=== PATIENT | female | born 1960 ===

== ENCOUNTER 2016-12-22 09:45 | Emergency (ER) | payer MEDICAID, OTHER ==
[2016-12-22] MEDS ORDERED: Morphine 4 MG/ML VIAL ONE (10:27)
[2016-12-22] MEDS ORDERED: Morphine 4 MG/ML VIAL IV STA (10:28)
--- NOTE | 2016-12-22 10:31 | C.PDOC ---
History Of Present Illness 56 y/o female presents to the ED for evaluation s/p fall. She reports that she was on her way to work when she slipped and fell landing on her right side. Patient now complaints of pain to the right elbow and right ribs. She denies any head injury, loss of consciousness, numbness/weakness, shortness of breath, or other complaints. Time Seen by Provider: 12/22/16 10:09 Chief Complaint (Nursing): Upper Extremity Problem/Injury History Per: Patient History/Exam Limitations: no limitations Onset/Duration Of Symptoms: Mins, Sudden Onset, Persistent Recent travel outside of the [place]: No Past Medical History Reviewed: Historical Data, Nursing Documentation, Vital Signs Vital Signs: Last Vital Signs Temp 98.2 F 12/22/16 14:54 Pulse 77 12/22/16 14:54 Resp 16 12/22/16 14:54 BP 136/81 12/22/16 14:54 Pulse Ox 98 12/22/16 18:21 - Medical History PMH: No Chronic Diseases Surgical History: No Surg Hx Family History: States: Unknown Family Hx - Social History Hx Tobacco Use: No Hx Alcohol Use: No Hx Substance Use: No - Immunization History Hx Influenza Vaccination: No Review Of Systems Except As Marked, All Systems Reviewed And Found Negative. Respiratory: Negative for: Shortness of Breath Musculoskeletal: Positive for: Arm Pain (right elbow), Other (right rib pain) Neurological: Negative for: Weakness, Numbness, Other (LOC) Physical Exam - Physical Exam Appears: Non-toxic, No Acute Distress Skin: Normal Color, Warm, Dry Head: Atraumatic, Normacephalic Eye(s): bilateral: Normal Inspection, PERRL, EOMI Neck: Normal ROM, No Midline Cervical Tenderness, No Paracervical Tenderness, Supple Chest: Symmetrical Cardiovascular: Rhythm Regular Respiratory: Normal Breath Sounds, No Rales, No Rhonchi, No Wheezing Gastrointestinal/Abdominal: Normal Exam, Soft, No Tenderness Back: Other (tenderness to posterior lateral right ribs) Extremity: Tenderness (right elbow), Deformity (right elbow), Swelling (right elbow), Other (decreased ROM in the right elbow) Pulses: Left Radial: Normal, Right Radial: Normal Neurological/Psych: Oriented x3, Normal Speech, Normal Cognition, Normal Motor, Normal Sensation ED Course And Treatment O2 Sat by Pulse Oximetry: 98 (ra) Pulse Ox Interpretation: Normal - Other Rad X-Ray, Right Elbow X-Ray: Viewed By Me, Read By Radiologist Interpretation: Accession No. : [id number]. Patient Name / ID : TEVIN RAYGOZA / [id number]. Exam Date : 12/22/2016 10:15:18 ( Approved ). Study Comment : Sex / Age : F / 56Y. Creator : Montez Savage MD. Dictator : Montez Savage MD. Crm Marketing Manager : Communications Administrator : Montez Savage MD. Approver2 : Report Date : 2016 11:46:59. My Comment : . PROCEDURE: Right Wrist Radiographs. . HISTORY: fall. COMPARISON: None. FINDINGS: BONES: No apparent displaced fracture. JOINTS: Dislocation of the right elbow joint with anterior displacement of the femoral condyles. SOFT TISSUES: Surrounding soft tissue swelling. OTHER FINDINGS: None. IMPRESSION: Total disruption of the right elbow joint with anterior displacement of the femoral condyles. Although there is no radiographically apparent fracture, underlying subtle fracture cannot be entirely excluded. X-Ray, Right Ribs/Chest Interpretation: Accession No. : [id number]. Patient Name / ID : TEVIN RAYGOZA / [id number]. Exam Date : 12/22/2016 10:15:03 ( Approved ). Study Comment : Sex / Age : F / 56Y. Creator : Montez Savage MD. Dictator : Montez Savage MD. Crm Marketing Manager : Communications Administrator : Montez Savage MD. Approver2 : Report Date : 2016 12:08:22. My Comment : . PROCEDURE: Radiographs of the Chest and Right Ribs. HISTORY: fall. COMPARISON: None available. TECHNIQUE: Frontal radiograph of the chest and multiple oblique radiographs of the right ribs were obtained. FINDINGS: RIGHT RIBS: Mildly limited study. No obvious fracture noted. LUNGS: Clear. PLEURA: No pneumothorax or pleural fluid.Biapical pleural parenchymal thickening noted. CARDIOVASCULAR: Normal sized heart. No pulmonary vascular congestion. OTHER FINDINGS: The osseous structures demonstrate degenerative changes. IMPRESSION: No obvious fracture. Clear lungs. Progress Note: X-Ray of the right ribs and chest and x-ray of the right elbow were ordered. Patient was treated with Morphine IVP. Medical Decision Making Medical Decision Making: PROCEDURE: REDUCTION Performed by the emergency provider MD Perla and DOROTA Pink Time: 12:30 pm Consent: Informed consent, after discussion of the risks, benefits, and alternatives to the procedure, was obtained. Timeout: A timeout to verify the correct patient, procedure, and site was performed immediately prior to the procedure. Indication: Elbow dislocation Location: Right Sedation: Propofol 75 mg. See MAR for details. Pre-procedure neurovascular status: Distal neurovascular status intact. Technique: traction Post-procedure neurovascular status: Distal neurovascular status remains intact. Confirmation: Post-reduction films confirm reduction. See post-procedure X-Ray interpretation. Post-procedure: Patient tolerated the procedure well with no immediate complications. The reduction site was immobilized with a posterior long arm splint and arm sling. case was d/ w (Orthopedist outpatient receptionist) who instructed to d/c patient home with him to follow up. Disposition - Disposition Referrals: Rod Bird MD [Staff Provider] - Disposition: HOME/ ROUTINE Disposition Time: 14:04 Condition: IMPROVED Additional Instructions: Follow up with PMD and Orthopedist within 2-3 days. Return to ED if feel worse. Prescriptions: Ibuprofen [Motrin Tab] 600 mg PO Q8 #30 tab oxyCODONE/Acetaminophen [Percocet 5/325 mg Tab] 1 tab PO QID PRN #20 tab PRN Reason: Pain Instructions: Elbow Dislocation (ED) Forms: Work Excuse - Clinical Impression Clinical Impression: Elbow dislocation - PA / LIBRARY CONSULTANT / Resident Statement MD/DO has reviewed & agrees with the documentation as recorded. - Scribe Statement The provider has reviewed the documentation as recorded by the Scribe (Juli Russell) All medical record entries made by the Scribe were at my direction and personally dictated by me. I have reviewed the chart and agree that the record accurately reflects my personal performance of the history, physical exam, medical decision making, and the department course for this patient. I have also personally directed, reviewed, and agree with the discharge instructions and disposition.
[2016-12-22] MEDS ORDERED: Propofol 10 mg/ml Inj (20 ML) IV STA (11:35)
--- NOTE | 2016-12-22 11:48 | RAD ---
PROCEDURE: Right Wrist Radiographs. HISTORY: fall COMPARISON: None. FINDINGS: BONES: No apparent displaced fracture. JOINTS: Dislocation of the right elbow joint with anterior displacement of the femoral condyles. SOFT TISSUES: Surrounding soft tissue swelling. OTHER FINDINGS: None. IMPRESSION: Total disruption of the right elbow joint with anterior displacement of the femoral condyles. Although there is no radiographically apparent fracture, underlying subtle fracture cannot be entirely excluded.
[2016-12-22] MEDS ORDERED: Propofol 10 mg/ml Inj (20 ML) ONE (12:04)
--- NOTE | 2016-12-22 12:09 | RAD ---
PROCEDURE: Radiographs of the Chest and Right Ribs. HISTORY: fall COMPARISON: None available. TECHNIQUE: Frontal radiograph of the chest and multiple oblique radiographs of the right ribs were obtained. FINDINGS: RIGHT RIBS: Mildly limited study. No obvious fracture noted. LUNGS: Clear. PLEURA: No pneumothorax or pleural fluid.Biapical pleural parenchymal thickening noted. CARDIOVASCULAR: Normal sized heart. No pulmonary vascular congestion. OTHER FINDINGS: The osseous structures demonstrate degenerative changes. IMPRESSION: No obvious fracture. Clear lungs.
[2016-12-22] MEDS ORDERED: Propranolol 1 mg/mL Inj IVP ONE (12:56)
[2016-12-22 15:03] VITALS: BP 136/81; PULSE 77; RESP 16; TEMP 98.2
[2016-12-22 18:17] VITALS: O2SAT 98
--- NOTE | 2016-12-23 18:24 | RAD ---
PROCEDURE: Right Wrist Radiographs. HISTORY: post reduction COMPARISON: None. FINDINGS: BONES: No definitive radiographic evidence of acute fracture so far as can be seen. Consists consider followup MRI to assess for occult fracture and soft tissue - ligamentous/ tendinous injury JOINTS: . Previously noted dorsal and proximal dislocation of the radius and ulna with respect to the humerus has been reduced SOFT TISSUES: Diffuse infiltration changes/soft tissue swelling of the subcutaneous tissues and musculature likely representing some combination of edema and possibly some periarticular hemorrhage. . OTHER FINDINGS: None. IMPRESSION: Interval post reduction previously noted dislocation of the radius/ulna with respect to the humerus. Significant surrounding soft tissue swelling. No definitive evidence of acute displaced fracture. Consider followup MRI for further evaluation as detailed above.
== END 2016-12-22 15:05 | disposition home or self-care (01) ==
LOC: C.ER 09:45
DX: S53.114A Anterior dislocation of right ulnohumeral joint, initial encounter (principal); W00.0XXA Fall on same level due to ice and snow, initial encounter; Y92.414 Local residential or business street as the place of occurrence of the external cause
CPT/HCPCS: 24600; 71101; 73080; 99285; J2270

== ENCOUNTER 2017-07-22 19:45 | Emergency (ER) | payer MEDICAID ==
[2017-07-22 20:00] VITALS: RESP 20
[2017-07-22] MEDS ORDERED: DiphenhydrAMINE 50 mg/ml Inj IVP STA (20:15)
[2017-07-22] MEDS ORDERED: Sodium Chloride 0.9% 1,000 ML IV ONE (20:15)
--- NOTE | 2017-07-22 20:16 | C.PDOC ---
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 Denies vomiting or abdominal pain. 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 SERVICES MANAGER) Current Symptoms Are (Timing): Still Present Possible Cause: Food (Peanut) Severity: Mild Additional History Per: Patient Past Medical History Reviewed: Historical Data, Nursing Documentation, Vital Signs Vital Signs: Last Vital Signs Temp 97.4 F L 07/22/17 19:59 Pulse 66 07/22/17 19:59 Resp 20 07/22/17 19:59 BP 108/70 07/22/17 19:59 Pulse Ox 97 07/22/17 21:49 Family History: States: Unknown Family Hx - Social History Hx Tobacco Use: No Hx Alcohol Use: No Hx Substance Use: No - Immunization History Hx Influenza Vaccination: No Review Of Systems Except As Marked, All Systems Reviewed And Found Negative. Respiratory: Positive for: Shortness of Breath Gastrointestinal: Negative for: Vomiting, Abdominal Pain Skin: Positive for: Rash Physical Exam - Physical Exam Appears: Non-toxic, No Acute Distress Skin: Warm, Dry, Rash (Redness to the bilateral upper extremities) Head: Atraumatic, Normacephalic Oral Mucosa: Moist Tongue: Normal Appearing, No Swelling Lips: Normal Appearing, No Swelling Throat: Normal, No Erythema Cardiovascular: Rhythm Regular, No Murmur Respiratory: No Rales, Rhonchi (Occasional), Wheezing (Occasional) Gastrointestinal/Abdominal: Soft, No Tenderness Neurological/Psych: Oriented x3, Normal Speech ED Course And Treatment O2 Sat by Pulse Oximetry: 97 (RA) Pulse Ox Interpretation: Normal Medical Decision Making Medical Decision Making: Impression: * 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 Hx of peanut allergy. Plans: * EKG * Benadryl * Pepcid * SOLU-Medrol * IV fluids Disposition Counseled Patient/Family Regarding: Diagnosis - Disposition Referrals: [facility] [Outside] Disposition: HOME/ ROUTINE Disposition Time: 22:02 Condition: IMPROVED Prescriptions: DiphenhydrAMINE [Benadryl] 50 mg PO Q6 #20 cap Methylprednisolone [Medrol Dose Pack (21 tabs)] 4 mg PO DAILY #21 mg Instructions: Food Allergy (ED), Allergies (ED) Forms: [facility] (Chinese), Gen Discharge Inst Bulgarian Print Language: URDU - POA Present On Arrival: None - Clinical Impression Clinical Impression: Allergic reaction - Scribe Statement The provider has reviewed the documentation as recorded by the Scribe Christofer mauro All medical record entries made by the Scribe were at my direction and personally dictated by me. I have reviewed the chart and agree that the record accurately reflects my personal performance of the history, physical exam, medical decision making, and the department course for this patient. I have also personally directed, reviewed, and agree with the discharge instructions and disposition.
[2017-07-22] MEDS ORDERED: DiphenhydrAMINE 50 mg/ml Inj ONE (20:17)
--- NOTE | 2017-07-22 20:19 | C.PDOC ---
Chief Complaint (Nursing): Allergic Reaction Past Medical History Vital Signs: Last Vital Signs Temp 97.4 F L 07/22/17 19:59 Pulse 66 07/22/17 19:59 Resp 20 07/22/17 19:59 BP 108/70 07/22/17 19:59 Pulse Ox 97 07/22/17 19:59 Family History: States: Unknown Family Hx - Social History Hx Tobacco Use: No Hx Alcohol Use: No Hx Substance Use: No - Immunization History Hx Influenza Vaccination: No ED Course And Treatment O2 Sat by Pulse Oximetry: 97 Disposition - Disposition
[2017-07-22 22:17] VITALS: BP 143/87; PULSE 89; TEMP 98; O2SAT 95
== END 2017-07-22 22:17 | disposition home or self-care (01) ==
LOC: C.ER 19:45
DX: T78.49XA Other allergy, initial encounter (principal); X58.XXXA Exposure to other specified factors, initial encounter
CPT/HCPCS: 96374; 96375; 99284; J1200; J2930; J7040